=== PATIENT | male | born 1965 | race Caucasian/White ===

== ENCOUNTER 2017-04-10 13:49 | Inpatient (IN) | payer OTHER ==
[~2017-04-10] VITALS: Ht 170.2 cm; Wt 61.5 kg
[~2017-04-10 13:49] MED LIST: ALBUMIN HUMAN 5% 500 ML IV ONE; CEFUROXIME 1.5 GM in SODIUM CHLORIDE 0.9% 50 ML IVPB PRN; DEXMEDETOMIDINE 200 MCG in SODIUM CHLORIDE 0.9% 48 ML IV SCH; EPINEPHRINE 2 MG in SODIUM CHLORIDE 0.9% 248 ML IV SCH; MANNITOL PMX 20% 500 ML IVPB PRN; PHENYLEPHRINE 10 MG in SODIUM CHLORIDE 0.9% 249 ML IV PRN; POTASSIUM CHLORIDE 80 MEQ, SODIUM BICARBONATE 8.4% 10 MEQ, MAGNESIUM SULFATE 0.5 GM, LI... IV PRN; REGULAR INSULIN 62.5 UNITS in SODIUM CHLORIDE 0.9% 249.375 ML IV PRN; VANCOMYCIN 1,000 MG in SODIUM CHLORIDE 0.9% 250 ML IV PRN
[2017-04-10] MEDS ORDERED: FENTANYL PF 1000 MCG/20ML ONE (13:59)
[2017-04-10] MEDS ORDERED: PAPAVERINE 30 MG/ML, 2ML ONE (13:59)
[2017-04-10] MEDS ORDERED: ROCURONIUM 10 MG/ML ONE ×2 (14:00→16:06)
[2017-04-10] MEDS ORDERED: HEPARIN 1,000 UNITS/ML, 10ML ONE (14:00)
[2017-04-10] MEDS ORDERED: PROPOFOL 10 MG/ML, 20ML ONE (14:00)
[2017-04-10] MEDS ORDERED: MIDAZOLAM 10MG/2 ML ONE (14:00)
[2017-04-10] MEDS ORDERED: SODIUM BICARB 8.4%, 50ML SYRINGE ONE ×5 (14:32→17:49)
[2017-04-10] MEDS ORDERED: PROTAMINE SULFATE 10 MG/ML, 5ML ONE (14:57)
[2017-04-10] MEDS ORDERED: VASOPRESSIN 20 UNIT/ML, 1ML ONE (15:22)
[2017-04-10] MEDS ORDERED: PROTAMINE SULFATE 10 MG/ML, 25ML ONE (16:07)
[2017-04-10] MEDS ORDERED: SODIUM CHLORIDE 0.9% 1,000 ML IV PRN (17:32)
[2017-04-10] MEDS ORDERED: REGULAR INSULIN 62.5 UNITS in SODIUM CHLORIDE 0.9% 249.375 ML IV PRN (17:32)
[2017-04-10] MEDS ORDERED: PHENYLEPHRINE 10 MG in SODIUM CHLORIDE 0.9% 249 ML IV PRN (17:32)
[2017-04-10] MEDS ORDERED: NITROGLYCERIN/D5W PMX 250 ML IV PRN (17:32)
[2017-04-10] MEDS ORDERED: DEXMEDETOMIDINE 200 MCG in SODIUM CHLORIDE 0.9% 48 ML IV PRN (17:32)
[2017-04-10] MEDS ORDERED: ALBUMIN HUMAN 25% 50 ML ONE (17:49)
[2017-04-10] MEDS ORDERED: LIDOCAINE 2% 100MG/5ML SYRINGE ONE (17:50)
[2017-04-10] MEDS ORDERED: PHENYLEPHRINE 10 MG/ML ONE (17:50)
[2017-04-10] MEDS ORDERED: HEPARIN 1,000 UNITS/ML, 30ML ONE ×4 (17:51→17:52)
[2017-04-10] MEDS: KSCALE TO 4.5 IV SCH (18:00)
[2017-04-10] MEDS ORDERED: DEXTROSE 50%, 50ML SYRINGE IVPush PRN (18:00)
[2017-04-10] MEDS ORDERED: ACETAMINOPHEN 650 MG SUPP PR PRN (18:00)
[2017-04-10] MEDS ORDERED: SODIUM BICARB 8.4%, 50ML SYRINGE IV PRN (18:00)
[2017-04-10] MEDS ORDERED: BISACODYL 10 MG SUPP PR PRN (18:00)
[2017-04-10] MEDS ORDERED: DEXTROSE 4 GM TAB.CHEW PO PRN (18:00)
[2017-04-10] MEDS ORDERED: morphine SULFATE 10 MG/ML, 1ML IVPush PRN (18:00)
[2017-04-10] MEDS: PLEASE ENTER HEIGHT AND WEIGHT MC SCH (18:00)
[2017-04-10] MEDS ORDERED: GLUCAGON 1 MG IM PRN (18:00)
[2017-04-10] MEDS ORDERED: EPINEPHRINE 2 MG in SODIUM CHLORIDE 0.9% 248 ML IV PRN (18:00)
[2017-04-10] MEDS ORDERED: MIDAZOLAM 1 MG/ML, 5ML IVPush PRN (18:00)
[2017-04-10] MEDS ORDERED: PROCHLORPERAZINE 5 MG/ML, 2ML IVPush PRN (18:00)
[2017-04-10] MEDS ORDERED: ONDANSETRON 2MG/ML, 2ML IVPush PRN (18:00)
[2017-04-10] MEDS: PLEASE ENTER ALLERGIES MC SCH ×2 (18:00)
[2017-04-10] MEDS ORDERED: MEPERIDINE/PF 25MG/0.5ML IVPush PRN (18:00)
[2017-04-10] MEDS ORDERED: BISACODYL 5 MG EC TABLET PO PRN (18:00)
[2017-04-10 18:01] LABS: ABG COLLECTION SITE ARTERIAL LINE
[2017-04-10 18:05] LABS: HEMATOCRIT 35.3 % (39.2-51.8); HEMOGLOBIN 11.9 g/dL (13.7-18.0)
[2017-04-10] MEDS ORDERED: POTASSIUM CHLORIDE 40 MEQ in SODIUM CHLORIDE 0.9% 100 ML IV ONE (18:30)
[2017-04-10] MEDS: MAGNESIUM SULFATE 1 GM in SODIUM CHLORIDE 0.9% 50 ML IVPB SCH (19:31)
[2017-04-10 19:58] VITALS: BP 98/57
[2017-04-10] MEDS: CEFUROXIME 1.5 GM in SODIUM CHLORIDE 0.9% 50 ML IVPB SCH (20:25)
[2017-04-10] MEDS: EPINEPHRINE 4 MG in SODIUM CHLORIDE 0.9% 246 ML IV PRN (20:39)
[2017-04-10] MEDS: VANCOMYCIN 1,000 MG in SODIUM CHLORIDE 0.9% 100 ML IVPB SCH (20:44)
[2017-04-10] MEDS: DOCUSATE 100 MG CAPSULE PO SCH (21:00)
[2017-04-10] MEDS: LACTATED RINGERS 500 ML IVBOLUS PRN ×2 (21:05→21:06)
[2017-04-10] MEDS: SODIUM CHLORIDE FLUSH 10ML SYR IVF SCH (21:56)
[2017-04-10] MEDS: MUPIROCIN OINT 2%, 22GM NAS SCH (21:56)
[2017-04-10] MEDS ORDERED: PHENYLEPHRINE 40 MG in SODIUM CHLORIDE 0.9% 246 ML IV PRN (23:30)
[2017-04-11 00:16] LABS: HEMATOCRIT 33.2 % (39.2-51.8); HEMOGLOBIN 11.2 g/dL (13.7-18.0)
[2017-04-11] MEDS ORDERED: DOBUTAMINE/D5W PMX 0 ML ONE (00:22)
[2017-04-11] MEDS ORDERED: POTASSIUM CHLORIDE PMX 100 ML IV ONE ×2 (01:00→08:00)
[2017-04-11] MEDS ORDERED: ALBUTEROL/IPRATROPIUM 2.5MG/0.5MG, 3 ML NPPB PRN (01:00)
[2017-04-11] MEDS: PLEASE ENTER ALLERGIES MC SCH ×2 (02:00)
[2017-04-11] MEDS: PLEASE ENTER HEIGHT AND WEIGHT MC SCH (02:00)
[2017-04-11] MEDS: EPINEPHRINE 4 MG in SODIUM CHLORIDE 0.9% 246 ML IV PRN ×3 (02:57→23:20)
[2017-04-11] MEDS: OXYcodone IR 5MG TABLET PO PRN ×4 (02:58→14:03)
[2017-04-11] MEDS: HYDROcodone/APAP 10/325 MG TABLET PO PRN ×3 (05:15→13:06)
[2017-04-11] MEDS: KSCALE TO 4.5 IV SCH ×4 (06:00→19:30)
[2017-04-11] MEDS: CEFUROXIME 1.5 GM in SODIUM CHLORIDE 0.9% 50 ML IVPB SCH (06:01)
[2017-04-11] MEDS: VANCOMYCIN 1,000 MG in SODIUM CHLORIDE 0.9% 100 ML IVPB SCH (06:35)
[2017-04-11 06:40] LABS: HEMATOCRIT 30.5 % (39.2-51.8); HEMOGLOBIN 10.3 g/dL (13.7-18.0); WHITE BLOOD COUNT 20.2 x10^3/uL (3.4-10)
[2017-04-11 06:49] LABS: BLOOD UREA NITROGEN 12 mg/dL (7-18)
[2017-04-11 06:51] LABS: ABG COLLECTION SITE ARTERIAL LINE
[2017-04-11 07:13] LABS: DIFF TOTAL CELLS COUNTED 100 CELL DIFF
[2017-04-11 07:14] LABS: VERIFY COUNTS? YES
[2017-04-11] MEDS ORDERED: DOBUTAMINE/D5W PMX 250 ML ONE (07:39)
[2017-04-11] MEDS: DOBUTAMINE 250 MG in SODIUM CHLORIDE 0.9% 230 ML IV PRN ×3 (08:04→23:20)
[2017-04-11] MEDS: SODIUM CHLORIDE FLUSH 10ML SYR IVF SCH ×2 (09:00→20:53)
[2017-04-11] MEDS: DOCUSATE 100 MG CAPSULE PO SCH ×2 (09:06→20:53)
[2017-04-11] MEDS: ASPIRIN 81 MG TABLET EC PO SCH (09:06)
[2017-04-11] MEDS: MUPIROCIN OINT 2%, 22GM NAS SCH ×2 (09:07→20:53)
[2017-04-11] MEDS: PANTOPRAZOLE 40 MG IV IVPush SCH (09:07)
[2017-04-11] MEDS ORDERED: NICOTINE 14MG/24 HR PATCH.TD24 TD ONE (11:30)
[2017-04-11 12:31] LABS: HEMATOCRIT 30.6 % (39.2-51.8); HEMOGLOBIN 10.5 g/dL (13.7-18.0)
[2017-04-11] MEDS: MAGNESIUM SULFATE 1 GM in SODIUM CHLORIDE 0.9% 50 ML IVPB SCH ×2 (17:01→17:14)
[2017-04-11] MEDS: INSULIN ASPART 100 UNITS/ML, PEN SQ-INSULIN PRN ×2 (17:13→18:59)
[2017-04-11] MEDS: CHLORHEXIDINE MOUTHWASH 15 ML UDC MM SCH (18:00)
[2017-04-11] MEDS ORDERED: KSCALE TO 4.5 IV SCH (18:00)
[2017-04-12] MEDS: KSCALE TO 4.5 IV SCH ×2 (01:30→07:20)
[2017-04-12 01:44] LABS: HEMATOCRIT 28.9 % (39.2-51.8); HEMOGLOBIN 9.7 g/dL (13.7-18.0)
[2017-04-12 05:07] LABS: ABG COLLECTION SITE RIGHT BRACHIAL
[2017-04-12 05:10] LABS: HEMATOCRIT 29.4 % (39.2-51.8); HEMOGLOBIN 9.8 g/dL (13.7-18.0); WHITE BLOOD COUNT 25.1 x10^3/uL (3.4-10)
[2017-04-12 05:13] LABS: BLOOD UREA NITROGEN 12 mg/dL (7-18)
[2017-04-12] MEDS ORDERED: FUROSEMIDE 20 MG/2 ML IV ONE (05:30)
[2017-04-12] MEDS: CHLORHEXIDINE MOUTHWASH 15 ML UDC MM SCH ×2 (05:39→17:19)
[2017-04-12 05:50] LABS: DIFF TOTAL CELLS COUNTED 100 CELL DIFF
[2017-04-12 05:52] LABS: VERIFY COUNTS? YES
[2017-04-12] MEDS: ENOXAPARIN 40 MG/0.4 ML SQ SCH (07:21)
[2017-04-12] MEDS: POTASSIUM CHLORIDE 10 MEQ TABLET.ER PO SCH (07:43)
[2017-04-12] MEDS: ASPIRIN 81 MG TABLET EC PO SCH (07:43)
[2017-04-12] MEDS: PANTOPRAZOLE 40 MG IV IVPush SCH (07:43)
[2017-04-12] MEDS: DOCUSATE 100 MG CAPSULE PO SCH ×2 (07:43→19:41)
[2017-04-12] MEDS: SODIUM CHLORIDE FLUSH 10ML SYR IVF SCH ×2 (07:44→19:41)
[2017-04-12] MEDS: MUPIROCIN OINT 2%, 22GM NAS SCH ×2 (07:45→19:42)
[2017-04-12] MEDS: OXYcodone IR 5MG TABLET PO PRN ×6 (08:00→22:31)
[2017-04-12] MEDS ORDERED: FUROSEMIDE 20 MG/2 ML IV SCH (09:00)
[2017-04-12] MEDS: MULTIVITAMIN 1 TABLET PO SCH (09:31)
[2017-04-12] MEDS: FOLIC ACID 1 MG TABLET PO SCH (09:31)
[2017-04-12] MEDS: THIAMINE 100MG TABLET PO SCH (09:31)
[2017-04-12] MEDS: FUROSEMIDE 20 MG/2 ML IV SCH (09:36)
[2017-04-12] MEDS: MAGNESIUM SULFATE 1 GM in SODIUM CHLORIDE 0.9% 50 ML IVPB SCH (18:00)
[2017-04-12] MEDS: ATORVASTATIN 80 MG TABLET PO SCH (19:41)
[2017-04-13] MEDS: OXYcodone IR 5MG TABLET PO PRN ×3 (04:04→18:52)
[2017-04-13 04:51] LABS: BLOOD UREA NITROGEN 25 mg/dL (7-18)
[2017-04-13] MEDS: CHLORHEXIDINE MOUTHWASH 15 ML UDC MM SCH (06:00)
[2017-04-13] MEDS: FUROSEMIDE 20 MG/2 ML IV SCH (08:14)
[2017-04-13] MEDS: SODIUM CHLORIDE FLUSH 10ML SYR IVF SCH ×3 (08:14→20:15)
[2017-04-13] MEDS: ASPIRIN 81 MG TABLET EC PO SCH (08:16)
[2017-04-13] MEDS: PANTOPRAZOLE 40 MG IV IVPush SCH (08:16)
[2017-04-13] MEDS: DOCUSATE 100 MG CAPSULE PO SCH ×2 (08:16→20:14)
[2017-04-13] MEDS: FOLIC ACID 1 MG TABLET PO SCH (08:17)
[2017-04-13] MEDS: CLOPIDOGREL 75 MG TABLET PO SCH (08:17)
[2017-04-13] MEDS: THIAMINE 100MG TABLET PO SCH (08:17)
[2017-04-13] MEDS: MULTIVITAMIN 1 TABLET PO SCH (08:17)
[2017-04-13] MEDS: POTASSIUM CHLORIDE 10 MEQ TABLET.ER PO SCH (08:17)
[2017-04-13] MEDS: MUPIROCIN OINT 2%, 22GM NAS SCH ×2 (08:17→20:13)
[2017-04-13] MEDS: ENOXAPARIN 40 MG/0.4 ML SQ SCH (09:00)
[2017-04-13] MEDS ORDERED: MAGNESIUM HYDROXIDE 8%, 30ML UDC PO PRN (09:00)
[2017-04-13 13:02] VITALS: BP 90/59
[2017-04-13] MEDS: HYDROcodone/APAP 10/325 MG TABLET PO PRN (13:32)
[2017-04-13 18:44] VITALS: BP 93/67
[2017-04-13 19:59] VITALS: BP 97/64
[2017-04-13] MEDS: ACETAMINOPHEN 325 MG TABLET PO PRN (20:13)
[2017-04-13] MEDS: ATORVASTATIN 80 MG TABLET PO SCH (20:17)
[2017-04-14] MEDS: OXYcodone IR 5MG TABLET PO PRN ×4 (01:05→21:43)
[2017-04-14 03:49] VITALS: BP 91/55
[2017-04-14 04:48] LABS: BLOOD UREA NITROGEN 19 mg/dL (7-18)
[2017-04-14 07:23] VITALS: BP 98/67
[2017-04-14] MEDS: ENOXAPARIN 40 MG/0.4 ML SQ SCH ×2 (09:00→09:25)
[2017-04-14] MEDS: CLOPIDOGREL 75 MG TABLET PO SCH (09:24)
[2017-04-14] MEDS: MULTIVITAMIN 1 TABLET PO SCH (09:24)
[2017-04-14] MEDS: FOLIC ACID 1 MG TABLET PO SCH (09:24)
[2017-04-14] MEDS: ASPIRIN 81 MG TABLET EC PO SCH (09:24)
[2017-04-14] MEDS: POTASSIUM CHLORIDE 10 MEQ TABLET.ER PO SCH (09:24)
[2017-04-14] MEDS: THIAMINE 100MG TABLET PO SCH (09:24)
[2017-04-14] MEDS: DOCUSATE 100 MG CAPSULE PO SCH ×2 (09:24→21:42)
[2017-04-14] MEDS: MUPIROCIN OINT 2%, 22GM NAS SCH ×2 (09:25→21:00)
[2017-04-14] MEDS: FUROSEMIDE 20 MG/2 ML IV SCH (09:25)
[2017-04-14] MEDS: SODIUM CHLORIDE FLUSH 10ML SYR IVF SCH ×4 (09:29→21:49)
[2017-04-14] MEDS: METOPROLOL TARTRATE 25 MG TABLET PO SCH ×2 (13:46→21:42)
[2017-04-14 14:00] VITALS: BP 95/59
[2017-04-14] MEDS: ACETAMINOPHEN 325 MG TABLET PO PRN (15:18)
[2017-04-14 19:41] VITALS: BP 97/59
[2017-04-14] MEDS: ATORVASTATIN 80 MG TABLET PO SCH (21:43)
[2017-04-15] MEDS: OXYcodone IR 5MG TABLET PO PRN ×3 (00:09→20:24)
[2017-04-15 05:25] VITALS: BP 91/52
[2017-04-15 06:05] LABS: BLOOD UREA NITROGEN 15 mg/dL (7-18)
[2017-04-15] MEDS: METOPROLOL TARTRATE 25 MG TABLET PO SCH ×2 (06:20→20:27)
[2017-04-15 07:24] VITALS: BP 92/57
[2017-04-15] MEDS: ENOXAPARIN 40 MG/0.4 ML SQ SCH (08:58)
[2017-04-15] MEDS: SODIUM CHLORIDE FLUSH 10ML SYR IVF SCH ×2 (08:58→09:06)
[2017-04-15] MEDS: POTASSIUM CHLORIDE 10 MEQ TABLET.ER PO SCH (09:05)
[2017-04-15] MEDS: DOCUSATE 100 MG CAPSULE PO SCH ×2 (09:05→20:28)
[2017-04-15] MEDS: ASPIRIN 81 MG TABLET EC PO SCH (09:05)
[2017-04-15] MEDS: MULTIVITAMIN 1 TABLET PO SCH (09:05)
[2017-04-15] MEDS: FOLIC ACID 1 MG TABLET PO SCH (09:05)
[2017-04-15] MEDS: THIAMINE 100MG TABLET PO SCH (09:05)
[2017-04-15] MEDS: MUPIROCIN OINT 2%, 22GM NAS SCH (09:06)
[2017-04-15] MEDS: CLOPIDOGREL 75 MG TABLET PO SCH (09:06)
[2017-04-15 09:07] VITALS: BP 83/55
[2017-04-15] MEDS: FUROSEMIDE 20 MG/2 ML IV SCH (09:07)
[2017-04-15 19:20] VITALS: BP 97/59
[2017-04-15] MEDS ORDERED: ACETAMINOPHEN 325 MG TABLET PO PRN (20:00)
[2017-04-15] MEDS ORDERED: ONDANSETRON 2MG/ML, 2ML IVPush PRN (20:00)
[2017-04-15] MEDS ORDERED: PROCHLORPERAZINE 5 MG/ML, 2ML IVPush PRN (20:00)
[2017-04-15] MEDS ORDERED: SODIUM CHLORIDE FLUSH 10ML SYR IVF SCH ×2 (20:00→21:00)
[2017-04-15] MEDS ORDERED: MAGNESIUM HYDROXIDE 8%, 30ML UDC PO PRN (20:00)
[2017-04-15] MEDS ORDERED: BISACODYL 5 MG EC TABLET PO PRN (20:00)
[2017-04-15] MEDS ORDERED: ACETAMINOPHEN 650 MG SUPP PR PRN (20:00)
[2017-04-15] MEDS ORDERED: BISACODYL 10 MG SUPP PR PRN (20:00)
[2017-04-15] MEDS: ATORVASTATIN 80 MG TABLET PO SCH (20:27)
[2017-04-15 20:29] VITALS: BP 98/62
[2017-04-16 02:45] VITALS: BP 92/54
[2017-04-16] MEDS: METOPROLOL TARTRATE 25 MG TABLET PO SCH (05:48)
[2017-04-16 05:49] VITALS: BP 91/64
[2017-04-16 05:49] LABS: HEMOGLOBIN 9.2 g/dL (13.7-18.0)
[2017-04-16 06:02] LABS: BLOOD UREA NITROGEN 14 mg/dL (7-18)
[2017-04-16 07:30] VITALS: BP 94/60
[2017-04-16] MEDS ORDERED: THIAMINE 100MG TABLET PO SCH (09:00)
[2017-04-16] MEDS ORDERED: MULTIVITAMIN 1 TABLET PO SCH (09:00)
[2017-04-16] MEDS: ASPIRIN 81 MG TABLET EC PO SCH (09:13)
[2017-04-16] MEDS: CLOPIDOGREL 75 MG TABLET PO SCH (09:14)
[2017-04-16] MEDS: OXYcodone IR 5MG TABLET PO PRN (09:14)
[2017-04-16] MEDS ORDERED: ASPI-621 PO (11:23)
[2017-04-16] MEDS ORDERED: ATOR-2 PO (11:24)
[2017-04-16] MEDS ORDERED: CLOP75TA PO (11:24)
[2017-04-16] MEDS ORDERED: OXYC5TAB3 PO (11:25)
[2017-04-16] MEDS ORDERED: METO25TA35 PO (11:25)
[2017-04-16 13:00] VITALS: BP 92/68
== END 2017-04-16 13:55 | disposition home or self-care (01) | DRG 235 ==
LOC: CSU 14:30 → ICU 04-13 04:01 → 5SO 04-13 12:41
PROVIDERS: ADMIT Thoracic Surgery (Cardiothoracic Vascular Surgery); ATTEND Thoracic Surgery (Cardiothoracic Vascular Surgery)
PROC: 06BQ0ZZ Excision of Left Saphenous Vein, Open Approach (ICD-10-PCS; 2017-04-10)
PROC: 3E080GC Introduction of Other Therapeutic Substance into Heart, Open Approach (ICD-10-PCS; 2017-04-10)
PROC: 5A1221Z Performance of Cardiac Output, Continuous (ICD-10-PCS; 2017-04-10)
PROC: 0T9B70Z Drainage of Bladder with Drainage Device, Via Natural or Artificial Opening (ICD-10-PCS; 2017-04-10)
PROC: 021009W Bypass Coronary Artery, One Artery from Aorta with Autologous Venous Tissue, Open Approach (ICD-10-PCS; principal; 2017-04-10 14:00)
DX: I21.09 ST elevation (STEMI) myocardial infarction involving other coronary artery of anterior wall (principal); J96.00 Acute respiratory failure, unspecified whether with hypoxia or hypercapnia; I49.01 Ventricular fibrillation; R57.0 Cardiogenic shock; I47.2 Ventricular tachycardia; I50.9 Heart failure, unspecified; D64.9 Anemia, unspecified; D72.829 Elevated white blood cell count, unspecified; F17.210 Nicotine dependence, cigarettes, uncomplicated; I25.10 Atherosclerotic heart disease of native coronary artery without angina pectoris; Z79.899 Other long term (current) drug therapy
CPT/HCPCS: 36415; 36600; 71010; 80048; 81001; 82040; 82330; 82800; 82803; 82810; 82947; 82962; 83735; 84132; 84295; 85014; 85018; 85025; 85049; 85347; 85610; 85730; 86850; 86900; 86923; 87081; 93005; 93306; 93312; 93321; 93325; 94002; 94003; 94150; J0697; J1644; J1650; J1815; J2250; J2270; J2405; J2704; J2720; J3010; J3370; J3475; J3480; J3490; J7120; P9045; P9047; C1751; C1760; C1762; C9113; J0171; J1250; J1940; J2370; J2440; J7050